=== PATIENT | female | born 1980 | race American Indian/Alaskan Native ===

== ENCOUNTER 2020-07-02 11:51 | Emergency (ER) | payer MEDICAID, OTHER ==
[2020-07-02 13:09] VITALS: BP 117/80
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
== END 2020-07-02 14:20 | disposition home or self-care (01) ==
LOC: ED 11:51
DX: M25.519 Pain in unspecified shoulder (principal); V49.69XA Unspecified car occupant injured in collision with other motor vehicles in traffic accident, initial encounter; Y93.89 Activity, other specified; Y92.488 Other paved roadways as the place of occurrence of the external cause; Y99.8 Other external cause status
CPT/HCPCS: 99283

== ENCOUNTER 2022-02-13 18:40 | Emergency (ER) | payer SELFPAY ==
[2022-02-13 19:46] VITALS: BP 150/70
== END 2022-02-13 21:28 | disposition left against medical advice (07) ==
LOC: ED 18:40
DX: R10.9 Unspecified abdominal pain (principal); Z53.21 Procedure and treatment not carried out due to patient leaving prior to being seen by health care provider